=== PATIENT | female | born 1970 | race Caucasian/White ===

== ENCOUNTER 2022-09-07 16:53 | Emergency (ER) | payer OTHER, SELFPAY ==
--- NOTE | ~2022-09-07 | XR_ITS ---
EXAMINATION: XR ankle RT min 3V DATE: 09/07/2022 17:15 INDICATION: Right ankle pain post fall TECHNIQUE: Anteroposterior, oblique, mortise, and lateral views of the right ankle were obtained. COMPARISON: None. FINDINGS: Minimal distraction of a small likely capsular avulsion fracture along the dorsal neck of the talus. Alignment is otherwise normal with no other fractures identified. Joint spaces are normal. Soft tissu es are unremarkable. No ankle joint effusion. IMPRESSION: 1. Small minimally distracted avulsion fracture along the dorsal neck of the talus. Reviewed, dictated and finalized at location A. [facility] IMPRESSION: 1. Small minimally distracted avulsion fracture along the dorsal neck of the ta mark.
[2022-09-07 16:56] VITALS: BP 120/72; PULSE 90; RESP 18; TEMP 36.7; O2SAT 100
--- NOTE | 2022-09-07 17:09 | ED.LOWEXIN ---
HPI - Extremity Injury (Lower) General Chief Complaint: Extremity Injury, Lower Stated Complaint: right ankle injury Time Seen by Provider: 09/07/22 17:03 Source: patient Mode of arrival: ambulatory Limitations: no limitations History of Present Illness HPI Narrative: Patient is a 52 y/o female who presents to the ED with c/o R ankle pain. Patient reports she was walking out onto her screening porch when she tripped on a shoe, causing her ankle to roll inward and fall. Patient states she heard a pop in her right ankle. She has been unable to ambulate since then due to the pain. She also c/o swelling to the right ankle. Complains of some tingling to the foot. No other injuries. No head injury, LOC. Related Data Home Medications Medication Instructions Recorded Confirmed sertraline 25 mg tablet (Zoloft) 5 mg PO DAILY 09/07/22 09/07/22 Allergies Allergy/AdvReac Type Severity Reaction Status Date / Time No Known Allergies Allergy Unknown Verified 09/07/22 17:01 Review of Systems Review of Systems: CONSTITUTIONAL: Denies fever, chills, or sweats. SKIN: Reports right ankle swelling. MUSCULOSKELETAL: See HPI. NEUROLOGIC: See HPI. All systems reviewed & are unremarkable except as noted in HPI and below PMFSH Past Medical History Medical History (Updated 09/07/22 @ 17:34 by Krystal Wilkins PA-C) Anxiety Surgical History Surgical History (Updated 09/07/22 @ 17:11 by Krystal Wilkins PA-C) No pertinent past surgical history Social History Social History (Updated 09/07/22 @ 17:11 by Krystal Wilkins PA-C) Smoking status: Never smoker Exam Narrative: GENERAL: Well appearing, well-nourished, non-toxic, in no acute distress. HEAD: Normocephalic, atraumatic. NECK: Supple. No adenopathy, no masses. RESPIRATORY: Airway patent, respirations nonlabored. CARDIOVASCULAR: Regular rate and rhythm without murmurs, rubs, or gallops. Pedal pulses 2+ and equal bilaterally. MUSCULOSKELETAL: Limited range of motion of right ankle due to pain. Tenderness along right lateral malleolus, extending over area of ATFL to anterior right ankle and more distally along base of fifth metatarsal. No tenderness along metatarsal heads. Sensation intact. Good capillary refill. No tenderness of proximal tibia/fibula. Swelling present along right lateral malleoli, extending to anterior right ankle. SKIN: Warm, dry, normal color. No rashes. NEURO: A&O X3. Speech clear. Cranial nerves II-XII grossly intact. No ataxic movements. PSYCHIATRIC: Appropriate mood and affect. Normal interaction. Course Vital Signs Vital signs: Vital Signs Temperature 98.0 F 09/07/22 16:56 Pulse Rate 90 09/07/22 16:56 Respiratory Rate 18 09/07/22 16:56 Blood Pressure 120/72 09/07/22 16:56 Pulse Oximetry 100 09/07/22 16:56 Oxygen Delivery Room Air 09/07/22 16:56 Temperature 98.0 F 09/07/22 16:56 Pulse Rate 90 09/07/22 16:56 Respiratory Rate 18 09/07/22 16:56 Blood Pressure 120/72 09/07/22 16:56 Pulse Oximetry 100 09/07/22 16:56 Oxygen Delivery Room Air 09/07/22 16:56 MDM - Extremity Injury (Lower) MDM Narrative Medical decision making narrative: Patient presented to ED status post fall with inversion injury of right ankle. Vitals stable upon arrival. Patient's injury is consistent with musculoskeletal etiology. No signs of neurologic or vascular compromise on physical examination. Compartments are soft without signs of compartment syndrome. XR showing small avulsion fracture of talus. Pain is consistent with exam and injury. Patient is felt to be stable for discharge home and further outpatient management and treatment. Placed in posterior short leg splint in the ED and given crutches. [place] and Naproxen sent to pharmacy for further pain management at home. Will provide orthopedic information for follow-up. Discussed RICE tx and reasons to return. Patient agrees w/ plan. Medical Records
[2022-09-07 17:30] VITALS: BP 119/88; PULSE 72; RESP 16; O2SAT 92
[2022-09-07] MEDS: KETOROLAC (*BKC) 60 MG/2 ML VIAL IM (17:31)
[2022-09-07] MEDS: HYDROcodone/acetaminophen (*CRX) 5-325 MG TABLET 1 TAB PO (17:31)
== END 2022-09-07 18:42 | disposition home or self-care (01) ==
LOC: ANHED 17:53
PROVIDERS: Emergency Provider Physician Assistant
DX: S92.111A Displaced fracture of neck of right talus, initial encounter for closed fracture (principal); F41.9 Anxiety disorder, unspecified; W18.09XA Striking against other object with subsequent fall, initial encounter
CPT/HCPCS: 29515; 73610; 96372; 99284; A9270; J1885